=== PATIENT | male | born 2000 | race African-American/Black ===

== ENCOUNTER 2025-07-03 09:03 | Inpatient (IN) | payer BC, OTHER ==
[~2025-07-03] VITALS: Ht 172.7 cm; Wt 94.1 kg
[2025-07-03] MEDS: SODIUM CHLORIDE 0.9% 1,000 ML IV ONE ×2 (09:46→14:03)
[2025-07-03 10:19] LABS: APPEARANCE,URINE CLEAR (CLEAR); GLUCOSE, URINE (UA) NEGATIVE (NEGATIVE); LEUKOCYTE ESTERASE ,URINE NEGATIVE (NEGATIVE); NITRATE,URINE NEGATIVE (NEGATIVE); OCCULT BLOOD,URINE LARGE (NEGATIVE); SPECIFIC GRAVITIY, URINE 1.027 (1.003-1.030)
[2025-07-03 10:21] LABS: PLATELET COUNT (AUTO) 229 K/uL (150-450); RED BLOOD CELL COUNT(AUTO) 5.02 MIL/uL (4.50-5.90); RED CELL DISTRIBUTION WIDTH 14.4 % (11.5-14.5); WHITE BLOOD COUNT (AUTO) 5.2 K/uL (4.5-11.0)
[2025-07-03 10:28] LABS: CALCIUM, TOTAL 8.7 mg/dL (8.8-10.5); CREATININE 0.89 mg/dL (0.60-1.30); GLOMERULAR FILTR. RATE CALC > 60 mL/min (>60); GLUCOSE,RANDOM 84 mg/dL (70-110); SODIUM SERUM 144 mmol/L (136-145); UREA NITROGEN, BLOOD 17 mg/dL (7-18)
[2025-07-03 10:51] LABS: TOTAL PROTEIN, SERUM 7.2 g/dL (6.4-8.2)
[2025-07-03 10:52] LABS: ASPARTATE AMINOTRANSFERASE 1670 U/L (15-37)
[2025-07-03 12:30] LABS: CREATINE KINASE, TOTAL ONLY 166600 U/L (39-308)
[2025-07-03 15:15] LABS: COVID AG,FIA SOURCE NASAL SWAB
[2025-07-03 15:44] LABS: SARS-COV2 (COVID) ANTIGEN,FIA Negative (Negative)
[2025-07-03] MEDS: SODIUM CHLORIDE 0.9% 1,000 ML IV SCH (15:44)
[2025-07-03] MEDS ORDERED: ZOLPIDEM TARTRATE 5 MG TABLET PO PRN (15:45)
[2025-07-03] MEDS ORDERED: ONDANSETRON HCL 4 MG/2 ML VIAL IVP PRN (15:45)
[2025-07-03] MEDS ORDERED: ACETAMINOPHEN 325 MG TABLET PO PRN (15:45)
[2025-07-03 18:17] VITALS: BP 125/87; PULSE 88; RESP 18; TEMP 98.1; O2SAT 99
[2025-07-03 19:44] VITALS: BP 108/63; PULSE 80; RESP 18; TEMP 98.6; O2SAT 100
[2025-07-03] MEDS: DOCUSATE SODIUM 100 MG CAPSULE PO SCH (20:21)
[2025-07-04 05:12] VITALS: BP 106/69; PULSE 71; RESP 18; TEMP 98.1; O2SAT 100
[2025-07-04 07:32] VITALS: BP 100/64; PULSE 84; RESP 18; TEMP 97.9; O2SAT 100
[2025-07-04 07:41] LABS: CALCIUM, TOTAL 8.1 mg/dL (8.8-10.5); CREATININE 0.82 mg/dL (0.60-1.30); GLOMERULAR FILTR. RATE CALC > 60 mL/min (>60); GLUCOSE,RANDOM 83 mg/dL (70-110); SODIUM SERUM 141 mmol/L (136-145); TOTAL PROTEIN, SERUM 6.4 g/dL (6.4-8.2); UREA NITROGEN, BLOOD 11 mg/dL (7-18)
[2025-07-04 07:44] LABS: ASPARTATE AMINOTRANSFERASE 1231 U/L (15-37)
[2025-07-04] MEDS: FAMOTIDINE 20 MG TABLET PO SCH (08:35)
[2025-07-04 08:39] LABS: CREATINE KINASE, TOTAL ONLY 151000 U/L (39-308)
[2025-07-04] MEDS: RINGERS SOLUTION,LACTATED 1,000 ML IV SCH (11:16)
[2025-07-04 16:34] VITALS: BP 109/57; PULSE 68; RESP 18; TEMP 97.5; O2SAT 100
[2025-07-04 20:01] VITALS: BP 122/83; PULSE 96; RESP 18; TEMP 98.2; O2SAT 96
[2025-07-05 05:06] VITALS: BP 114/80; PULSE 72; RESP 18; TEMP 97.5; O2SAT 97
[2025-07-05 07:47] LABS: CALCIUM, TOTAL 8.9 mg/dL (8.8-10.5); CREATININE 0.76 mg/dL (0.60-1.30); GLOMERULAR FILTR. RATE CALC > 60 mL/min (>60); GLUCOSE,RANDOM 82 mg/dL (70-110); SODIUM SERUM 140 mmol/L (136-145); UREA NITROGEN, BLOOD 10 mg/dL (7-18)
[2025-07-05 08:05] LABS: ASPARTATE AMINOTRANSFERASE 1118.0 U/L (15-37); TOTAL PROTEIN, SERUM 6.4 g/dL (6.4-8.2)
[2025-07-05 08:12] VITALS: BP 122/94; PULSE 68; RESP 18; TEMP 97.9; O2SAT 100
[2025-07-05 10:00] LABS: CREATINE KINASE, TOTAL ONLY 89600.0 U/L (39-308)
[2025-07-05 14:23] LABS: PH,URINE DRUG SCREEN 8.0 (5.0-8.0)
[2025-07-05 14:30] LABS: ALCOHOL, URINE DRUG SCREEN NEGATIVE (NEGATIVE); AMPHET/METH SCREEN,URINE NEGATIVE (NEGATIVE); BARBITURATE SCREEN, URINE NEGATIVE (NEGATIVE); CANNABINOID SCREEN,URINE NEGATIVE (NEGATIVE); COCAINE SCREEN,URINE NEGATIVE (NEGATIVE); METHADONE SCREEN, URINE NEGATIVE (NEGATIVE)
[2025-07-05 16:00] VITALS: BP 118/82; PULSE 76; RESP 20; TEMP 98.2; O2SAT 99
[2025-07-05 20:12] VITALS: BP 113/69; PULSE 88; RESP 20; TEMP 98.1; O2SAT 97
[2025-07-06 05:30] VITALS: BP 108/64; PULSE 71; RESP 18; TEMP 97.7; O2SAT 99
[2025-07-06 06:57] LABS: CALCIUM, TOTAL 8.9 mg/dL (8.8-10.5); CREATININE 0.75 mg/dL (0.60-1.30); GLOMERULAR FILTR. RATE CALC > 60 mL/min (>60); GLUCOSE,RANDOM 82 mg/dL (70-110); SODIUM SERUM 140 mmol/L (136-145); UREA NITROGEN, BLOOD 10 mg/dL (7-18)
[2025-07-06 08:24] VITALS: BP 108/79; PULSE 70; RESP 18; TEMP 97.7; O2SAT 100
[2025-07-06 10:55] LABS: ASPARTATE AMINOTRANSFERASE 777.0 U/L (15-37); TOTAL PROTEIN, SERUM 6.2 g/dL (6.4-8.2)
[2025-07-06 15:57] VITALS: BP 132/88; PULSE 86; RESP 18; TEMP 98.6; O2SAT 100
[2025-07-06 21:23] VITALS: BP 114/77; PULSE 73; RESP 18; TEMP 98.1; O2SAT 95
[2025-07-07 05:42] VITALS: BP 105/64; PULSE 71; RESP 18; TEMP 97.5; O2SAT 100
[2025-07-07 07:37] LABS: ASPARTATE AMINOTRANSFERASE 403 U/L (15-37); CALCIUM, TOTAL 8.6 mg/dL (8.8-10.5); CREATININE 0.84 mg/dL (0.60-1.30); GLOMERULAR FILTR. RATE CALC > 60 mL/min (>60); GLUCOSE,RANDOM 87 mg/dL (70-110); SODIUM SERUM 140 mmol/L (136-145); TOTAL PROTEIN, SERUM 6.2 g/dL (6.4-8.2); UREA NITROGEN, BLOOD 10 mg/dL (7-18)
[2025-07-07 08:07] VITALS: BP 128/98; PULSE 69; RESP 18; TEMP 97.7; O2SAT 99
[2025-07-07 15:24] VITALS: BP 116/68; PULSE 75; RESP 18; TEMP 98.1; O2SAT 96
[2025-07-07 19:25] VITALS: BP 128/85; PULSE 85; RESP 18; TEMP 98.1; O2SAT 98
[2025-07-08 04:10] VITALS: BP 106/81; PULSE 69; RESP 18; TEMP 97.3; O2SAT 99
[2025-07-08 07:55] VITALS: BP 125/77; PULSE 71; RESP 19; TEMP 97.9; O2SAT 100
[2025-07-08 07:59] LABS: ASPARTATE AMINOTRANSFERASE 222 U/L (15-37); CALCIUM, TOTAL 8.8 mg/dL (8.8-10.5); CREATININE 0.82 mg/dL (0.60-1.30); GLOMERULAR FILTR. RATE CALC > 60 mL/min (>60); GLUCOSE,RANDOM 84 mg/dL (70-110); SODIUM SERUM 141 mmol/L (136-145); TOTAL PROTEIN, SERUM 6.2 g/dL (6.4-8.2); UREA NITROGEN, BLOOD 8 mg/dL (7-18)
[2025-07-08 15:30] VITALS: BP 115/95; PULSE 66; RESP 18; TEMP 98; O2SAT 97
[2025-07-08 20:00] VITALS: BP 118/75; PULSE 79; RESP 18; TEMP 98.4; O2SAT 99
[2025-07-09 03:43] VITALS: BP 105/54; PULSE 68; RESP 18; TEMP 97.7; O2SAT 100
[2025-07-09 07:34] VITALS: BP 118/57; PULSE 71; RESP 18; TEMP 98.1; O2SAT 100
[2025-07-09 07:41] LABS: ASPARTATE AMINOTRANSFERASE 128 U/L (15-37); CALCIUM, TOTAL 8.6 mg/dL (8.8-10.5); CREATININE 0.81 mg/dL (0.60-1.30); GLOMERULAR FILTR. RATE CALC > 60 mL/min (>60); GLUCOSE,RANDOM 86 mg/dL (70-110); SODIUM SERUM 139 mmol/L (136-145); TOTAL PROTEIN, SERUM 6.1 g/dL (6.4-8.2); UREA NITROGEN, BLOOD 11 mg/dL (7-18)
== END 2025-07-09 11:33 | disposition home or self-care (01) | DRG 558 ==
LOC: EMS 09:06 → EDH 15:31 → 4E 17:48
PROVIDERS: ADMIT Internal Medicine; ATTEND Internal Medicine
DX: M62.82 Rhabdomyolysis (principal); B17.9 Acute viral hepatitis, unspecified; R74.01 Elevation of levels of liver transaminase levels; T14.8XXA Other injury of unspecified body region, initial encounter; X58.XXXA Exposure to other specified factors, initial encounter; Z20.822 Contact with and (suspected) exposure to COVID-19; Y93.89 Activity, other specified; Y92.89 Other specified places as the place of occurrence of the external cause; Y99.8 Other external cause status
CPT/HCPCS: 76700; 80048; 80053; 80076; 80307; 81001; 82550; 84443; 85025; 96360; 96361; 99285; G0378; J7030; J7120; 36415-L1; 36415-TC